=== PATIENT | male | born 1980 | race African-American/Black ===

== ENCOUNTER 2018-09-06 11:01 | Emergency (ER) | payer MEDICAID ==
[~2018-09-06] VITALS: Ht 177.8 cm; Wt 66.7 kg
--- NOTE | 2018-09-06 11:04 | NUR ---
[facility], FOUND HIM IN THE STREET ALTERED, +N/V, -TRAUMA, [address], [address], HYPOTENSIVE ON SCENE, IV FLUIDS GIVEN 500cc, BP 80/60, TO ER BED 5, PATIENT NOTED WITH DRIED BLOOD AROUND MOUTH, HOOKED TO MONITOR, CHANGED TO GOWN, PROVIDED W WARM BLANKET, PT AWAKE BUT NOT RESPONDING TO QUESTIONS , AWAITING MD DURANT
--- NOTE | 2018-09-06 11:05 | NUR ---
IV LINE ESTABLISHED BLOOD DRAWNED AND SENT TO LAB.
--- NOTE | 2018-09-06 11:10 | NUR ---
SEEN AND EXAMINED BY DR. CALLAWAY
[2018-09-06] MEDS ORDERED: NALOXONE PREFILLED SYRINGE 2 MG/2 ML SYRINGE ONE (11:13)
[2018-09-06 11:19] LABS: ABG BASE EXCESS -9.5 mmol/L; ABG OXYGEN SATURATION 99.2 % (92.0-98.5); ABG PCO2 20.6 mmHg (35.0-45.0); ABG PH 7.416 (7.350-7.450); ABG PO2 334.3 mmHg (75.0-100.0); AaDO2 214.5 mmHg; COHb 1.2 % (0.5-1.5); MetHb 0.7 % (0.0-1.5); O2Hb 97.3 % (94.0-97.0); SITE, ABG Left Brachial; VENT MODE, BG NON REBREATHER
[2018-09-06 11:24] LABS: BASOPHILS % (AUTO) 0.2 % (0.0-2.0); EOSINOPHILS % (AUTO) 0.4 % (0.0-6.0); HEMATOCRIT 36 % (39-51); HEMOGLOBIN 12.2 g/dL (13.5-17.5); LYMPHOCYTES # (AUTO) 2.2 /CMM (0.8-4.8); LYMPHOCYTES % (AUTO) 11.3 % (20.0-44.0); MEAN CORPUSCULAR HGB CONC 34 g/dl (31.0-36.0); MEAN CORPUSCULAR VOLUME 95 fL (80-96); MONOCYTES # (AUTO) 0.3 /CMM (0.1-1.30); MONOCYTES % (AUTO) 1.8 % (2.0-12.0); NEUTROPHILS % (AUTO) 86.3 % (43.0-81.0); PLATELET COUNT (AUTO) 248 /CMM (150-450); WHITE BLOOD COUNT (AUTO) 19.7 K/uL (4.3-11.0)
[2018-09-06] MEDS ORDERED: IV NS 0.9% 1,000 ML BAG IV ONE ×2 (11:30→12:00)
[2018-09-06] MEDS ORDERED: NALOXONE HCL 0.4 MG/ML AMPUL IV ONE (11:30)
[2018-09-06 11:37] LABS: CALCIUM, SERUM 8.3 mg/dL (8.5-10.1); CARBON DIOXIDE 24 mmol/L (21-32); CHLORIDE 105 mmol/L (98-107); CREATININE 1.6 mg/dL (0.6-1.3); GLUCOSE 190 mg/dL (74-106); POTASSIUM 2.9 mmol/L (3.5-5.1); SODIUM SERUM 140 mmol/L (136-145); UREA NITROGEN, BLOOD 12 mg/dL (7-18)
[2018-09-06 11:41] LABS: APPEARANCE,URINE Turbid (CLEAR); BILIRUBIN,URINE SMALL (NEGATIVE); BLOOD, URINE Moderate Ery/uL (NEGATIVE); COLOR,URINE Yellow (YELLOW); KETONES,URINE 40 (NEGATIVE); LEUKOCYTE ESTERASE ,URINE Negative (NEGATIVE); NITRITE, URINE Negative (NEGATIVE); PH,URINE 5.5 (5.0-8.0); PROTEIN,URINE 100 mg/dl (NEGATIVE); UGLUCOSE Negative (NEGATIVE); UROBILINOGEN,URINE 0.2 EU/dL (0.2)
--- NOTE | 2018-09-06 11:42 | NUR ---
PT BROUGHT BACK FROM RADIOLOGY, UNABLE TO GET A HEAD CT SCAN. PT BECAME AGITATED AND STARTED VOMITTING BLOOD. DR CALLAWAY MADE AWARE.
[2018-09-06 11:43] LABS: ALANINE AMINOTRANSFERASE 19 U/L (12-78); ALBUMIN 3.5 g/dL (3.4-5.0); ALKALINE PHOSPHATASE 100 U/L (46-116); ASPARTATE AMINOTRANSFERASE 33 U/L (15-37); BILIRUBIN,DIRECT 0.2 mg/dL (0.0-0.2); BILIRUBIN,TOTAL 1.8 mg/dL (0.2-1.0); TOTAL PROTEIN, SERUM 6.4 g/dL (6.4-8.2)
[2018-09-06 11:54] LABS: RBC,URINE TOO NUMEROUS TO COUN /HPF (0-2)
[2018-09-06 11:55] LABS: BACTERIA,URINE Few /HPF (None Seen); SQUAMOUS EPITHELIAL CELL,UR Few /HPF (None Seen)
--- NOTE | 2018-09-06 11:55 | NUR ---
PATIENT WENT TO CARDIAC ARREST, CODE BLUE ACTIVATED, CPR IMMEDIATELY STARTED. MD AT BEDSIDE PREPARING FOR INTUBATION.
[2018-09-06] MEDS ORDERED: PROPOFOL 100 ML IV ONE (11:56)
--- NOTE | 2018-09-06 11:56 | NUR ---
REFER TO CODE BLUE SHEET Addendum: 09/06/18 at 1856 by WAYNE REFER TO CODE SHEET
[2018-09-06] MEDS ORDERED: SUCCINYLCHOLINE CHLORIDE 20 MG/ML VIAL IV ONE (12:00)
[2018-09-06] MEDS ORDERED: ETOMIDATE 2 MG/ML VIAL IV ONE (12:00)
[2018-09-06] MEDS ORDERED: CEFTRIAXONE 1GM BAG (ER ONLY) 50 ML IV ONE (12:00)
[2018-09-06] MEDS ORDERED: LEVETIRACETAM (500MG) 500 MG in IV NS 0.9% 100 ML IV ONE (12:00)
--- NOTE | 2018-09-06 12:14 | NUR ---
TIME OF , CALLED BY DR CALLAWAY: [phone]
[2018-09-06 12:15] LABS: SALICYLATE 2.5 mg/dL (2.8-20.0)
--- NOTE | 2018-09-06 12:41 | NUR ---
CALLED NUMBER ON FILE, LEFT VOICEMAIL. [phone]
--- NOTE | 2018-09-06 12:47 | NUR ---
BROTHER AT BEDSIDE
--- NOTE | 2018-09-06 12:48 | NUR ---
LIZBETH received a call from Caitlin in ED informing LIZBETH that pt's brother Rahul Glass is here at the hospital and to provide emotional support to him since pt. is . LIZBETH met with pt's brother Rahul in ED. Rahul was distraught and crying. SW provided compassion and emotional support to him. Rahul informed LIZBETH that pt. wasn't feeling well yesterday and they were planning to come to [facility] ED, however the pt. had drank some water and felt better. Pt. is from [place] and was staying with his brother at [id number] [address] in [place]. [place]. Rahul's contact number is . This morning Jaycee left for work and pt's father Dr. Glass was attempting to get hold of the pt. but he wouldn't answer his phone. Rahul then left work and went to the apartment to check on the pt. When Rahul got home, he noticed the apartment door was wide open and the house was in array. He asked his neighbors who informed him that the pt. was picked up by ambulance. Rahul informed LIZBETH that pt. had mental illness but did not mention any drug use etc. LIZBETH continued to offer emotional support to him. Rahul informed LIZBETH that his father is flying to [place] today. LIZBETH asked Rahul if he would like a [employer] fabricator to be called, Rahul stated, " I don't know what I want." LIZBETH informed him she is available, if needed.
--- NOTE | 2018-09-06 13:35 | NUR ---
PHONE NUMBER FOR FATHER. FATHER'S NAME DR. DIANE TONY.
--- NOTE | 2018-09-06 14:06 | NUR ---
REMAINS TRANSFERRED TO [facility] [place] BY [facility], ACCOMPANIED BY SECURITY.
[2018-09-06 14:29] VITALS: BP 0/0
== END 2018-09-06 13:00 ==
LOC: ER 11:03 → UNDOADMIN 12:15 → ICU 12:15
DX: I46.9 Cardiac arrest, cause unspecified (principal)
CPT/HCPCS: 31500; 36415; 36600 ×2; 51702; 80048; 80076; 80305; 80329; 81001; 82803; 83605; 84145; 84484; 85025; 85730; 87040 ×2; 87086; 92950; 93005; 96361; 96374; 99291; G0480; J1953; J2310; J7030; 81000-TC